=== PATIENT | male | born 1960 | race Caucasian/White ===

== ENCOUNTER → 2017-01-23 | Outpatient (CLI) | payer BC ==
[~2017-01-23] MED LIST: KEFLEX500 MG PO; VICODIN 500 MG-1 TAB PO
[2017-01-23 08:12] LABS: INTERNATIONAL NORM RATIO 1.5 (2.0-3.5); PROTHROMBIN TIME 16.5 SECONDS (9.0-12.4)
== END | disposition home or self-care (01) ==
LOC: LAB 07:16
PROVIDERS: Family Medicine
DX: I82.409 Acute embolism and thrombosis of unspecified deep veins of unspecified lower extremity (principal); I26.99 Other pulmonary embolism without acute cor pulmonale

== ENCOUNTER → 2017-01-30 | Outpatient (CLI) | payer BC ==
[2017-01-30 08:27] LABS: INTERNATIONAL NORM RATIO 1.8 (2.0-3.5); PROTHROMBIN TIME 19.5 SECONDS (9.0-12.4)
== END | disposition home or self-care (01) ==
LOC: LAB 07:49
PROVIDERS: Family Medicine
DX: I26.99 Other pulmonary embolism without acute cor pulmonale (principal); I82.409 Acute embolism and thrombosis of unspecified deep veins of unspecified lower extremity

== ENCOUNTER → 2017-02-20 | Outpatient (CLI) | payer BC ==
[2017-02-20 08:11] LABS: INTERNATIONAL NORM RATIO 1.8 (2.0-3.5)
== END | disposition home or self-care (01) ==
LOC: LAB 07:19
PROVIDERS: Family Medicine
DX: I26.99 Other pulmonary embolism without acute cor pulmonale (principal); I82.409 Acute embolism and thrombosis of unspecified deep veins of unspecified lower extremity

== ENCOUNTER → 2017-04-03 | Outpatient (CLI) | payer BC ==
[2017-04-03 09:15] LABS: INTERNATIONAL NORM RATIO 2.9 (2.0-3.5); PROTHROMBIN TIME 32.3 SECONDS (9.0-12.4)
== END | disposition home or self-care (01) ==
LOC: LAB 07:49
PROVIDERS: Family Medicine
DX: Z79.01 Long term (current) use of anticoagulants (principal)

== ENCOUNTER → 2017-05-07 | Outpatient (CLI) | payer BC ==
[2017-05-07 08:41] LABS: INTERNATIONAL NORM RATIO 1.9 (2.0-3.5); PROTHROMBIN TIME 20.9 SECONDS (9.0-12.4)
== END | disposition home or self-care (01) ==
LOC: LAB 07:37
PROVIDERS: Family Medicine
DX: Z79.01 Long term (current) use of anticoagulants (principal)

== ENCOUNTER → 2017-06-05 | Outpatient (CLI) | payer BC ==
[2017-06-05 08:32] LABS: INTERNATIONAL NORM RATIO 2.4 (2.0-3.5); PROTHROMBIN TIME 27.4 SECONDS (9.0-12.4)
== END | disposition home or self-care (01) ==
LOC: LAB 07:29
PROVIDERS: Family Medicine
DX: Z79.01 Long term (current) use of anticoagulants (principal)

== ENCOUNTER → 2017-07-10 | Outpatient (CLI) | payer BC ==
[2017-07-10 09:15] LABS: INTERNATIONAL NORM RATIO 2.5 (2.0-3.5)
== END | disposition home or self-care (01) ==
LOC: LAB 08:07
PROVIDERS: Family Medicine
DX: Z79.01 Long term (current) use of anticoagulants (principal)

== ENCOUNTER → 2017-08-07 | Outpatient (CLI) | payer BC ==
[2017-08-07 08:32] LABS: HEMATOCRIT 40.7 % (42.0-52.0); HEMOGLOBIN 13.1 g/dl (14.0-18.0); MEAN CELL VOLUME 80.3 fl (80.0-94.0); MEAN CORPUSCULAR HGB 25.8 pg (27.0-31.0); MEAN CORPUSCULAR HGB CONC 32.2 g/dl (33.0-37.0); MEAN PLATELET VOLUME 11.1 fl (9.6-12.3); RED BLOOD COUNT 5.07 10*6/uL (4.50-5.90); RED CELL DISTRI WIDTH 15.8 % (0-14.5); WHITE BLOOD COUNT 5.7 10*3/uL (4.8-10.8)
[2017-08-07 08:54] LABS: ALKALINE PHOSPHATASE 61 U/L (45-117); BUN 14 mg/dl (7-24); CHLORIDE 107 mmol/L (98-107); CHOLESTEROL 151 mg/dL (<200); CREATININE 0.93 mg/dL (0.70-1.30); HDL CHOLESTEROL 30 mg/dl (40-60); LDL CHOLESTEROL 66 mg/dL (9-159); POTASSIUM 4.6 mmol/L (3.5-5.1); SGOT/AST 17 IU/L (3-35); SGPT/ALT 23 U/L (12-78); SODIUM 140 mmol/L (136-145); TOTAL PROTEIN 7.3 gm/dL (6.4-8.2); TRIGLYCERIDES 273 mg/dl (<150); VLDL CHOLESTEROL 55 mg/dL (6-40)
[2017-08-07 08:56] LABS: INTERNATIONAL NORM RATIO 2.3 (2.0-3.5)
== END | disposition home or self-care (01) ==
LOC: LAB 07:53
PROVIDERS: Family Medicine
DX: Z12.5 Encounter for screening for malignant neoplasm of prostate (principal); E78.00 Pure hypercholesterolemia, unspecified; E55.9 Vitamin D deficiency, unspecified; I10 Essential (primary) hypertension; K21.9 Gastro-esophageal reflux disease without esophagitis; R79.1 Abnormal coagulation profile; Z79.899 Other long term (current) drug therapy

== ENCOUNTER → 2017-09-25 | Outpatient (CLI) | payer BC ==
[2017-09-25 08:22] LABS: INTERNATIONAL NORM RATIO 1.6 (2.0-3.5)
== END | disposition home or self-care (01) ==
LOC: LAB 07:12
PROVIDERS: Family Medicine
DX: Z79.01 Long term (current) use of anticoagulants (principal)

== ENCOUNTER → 2017-11-06 | Outpatient (CLI) | payer BC ==
[2017-11-06 09:51] LABS: INTERNATIONAL NORM RATIO 1.7 (2.0-3.5)
== END | disposition home or self-care (01) ==
LOC: LAB 09:12
PROVIDERS: Family Medicine
DX: Z51.81 Encounter for therapeutic drug level monitoring (principal); I10 Essential (primary) hypertension; Z79.899 Other long term (current) drug therapy

== ENCOUNTER → 2017-11-29 | Outpatient (CLI) | payer BC ==
[2017-11-29 08:03] LABS: INTERNATIONAL NORM RATIO 2.7 (2.0-3.5)
== END | disposition home or self-care (01) ==
LOC: LAB 07:09
PROVIDERS: Family Medicine
DX: Z79.01 Long term (current) use of anticoagulants (principal)

== ENCOUNTER → 2018-01-29 | Outpatient (CLI) | payer BC ==
[2018-01-29 12:32] LABS: INTERNATIONAL NORM RATIO 2.6 (2.0-3.5)
== END | disposition home or self-care (01) ==
LOC: LAB 11:48
PROVIDERS: Family Medicine
DX: Z51.81 Encounter for therapeutic drug level monitoring (principal); Z79.01 Long term (current) use of anticoagulants

== ENCOUNTER → 2018-02-08 | Outpatient (CLI) | payer BC ==
[2018-02-08 09:37] LABS: HEMATOCRIT 40.1 % (42.0-52.0); HEMOGLOBIN 12.3 g/dl (14.0-18.0); MEAN CELL VOLUME 78.9 fl (80.0-94.0); MEAN CORPUSCULAR HGB 24.2 pg (27.0-31.0); MEAN CORPUSCULAR HGB CONC 30.7 g/dl (33.0-37.0); MEAN PLATELET VOLUME 10.5 fl (9.6-12.3); RED BLOOD COUNT 5.08 10*6/uL (4.50-5.90); RED CELL DISTRI WIDTH 16.6 % (0-14.5); WHITE BLOOD COUNT 6.7 10*3/uL (4.8-10.8)
[2018-02-08 10:07] LABS: ALBUMIN 3.9 gm/dl (3.1-4.5); BUN 12 mg/dl (7-24); CHLORIDE 108 mmol/L (98-107); POTASSIUM 4.9 mmol/L (3.5-5.1); SODIUM 141 mmol/L (136-145)
[2018-02-08 10:13] LABS: ALKALINE PHOSPHATASE 63 U/L (45-117); CHOLESTEROL 132 mg/dL (<200); CREATININE 0.95 mg/dL (0.70-1.30); HDL CHOLESTEROL 25 mg/dl (40-60); LDL CHOLESTEROL 62 mg/dL (9-159); SGOT/AST 15 IU/L (3-35); SGPT/ALT 21 U/L (12-78); TOTAL PROTEIN 7.3 gm/dL (6.4-8.2); TRIGLYCERIDES 224 mg/dl (<150); VLDL CHOLESTEROL 45 mg/dL (6-40)
[2018-02-09 09:10] LABS: PROSTATE SPECIFIC AG FREE 0.4 ng/mL
[2018-02-10 09:05] LABS: TESTOSTERONE FREE, (DIRECT) 8.2 pg/mL (7.2-24.0)
== END | disposition home or self-care (01) ==
LOC: LAB 09:01
PROVIDERS: Family Medicine
DX: E78.00 Pure hypercholesterolemia, unspecified (principal); N40.0 Benign prostatic hyperplasia without lower urinary tract symptoms; Z79.01 Long term (current) use of anticoagulants

== ENCOUNTER → 2018-03-12 | Outpatient (CLI) | payer BC ==
[2018-03-12 08:15] LABS: INTERNATIONAL NORM RATIO 2.7 (2.0-3.5)
== END | disposition home or self-care (01) ==
LOC: LAB 07:21
PROVIDERS: Family Medicine
DX: R79.1 Abnormal coagulation profile (principal); Z79.01 Long term (current) use of anticoagulants

== ENCOUNTER → 2018-04-08 | Outpatient (CLI) | payer BC ==
[2018-04-08 08:47] LABS: INTERNATIONAL NORM RATIO 4.1 (2.0-3.5)
== END | disposition home or self-care (01) ==
LOC: LAB 07:13
PROVIDERS: Family Medicine
DX: I82.401 Acute embolism and thrombosis of unspecified deep veins of right lower extremity (principal); Z79.01 Long term (current) use of anticoagulants

== ENCOUNTER → 2018-04-18 | Outpatient (CLI) | payer BC ==
[2018-04-18 08:07] LABS: INTERNATIONAL NORM RATIO 2.6 (2.0-3.5)
== END | disposition home or self-care (01) ==
LOC: LAB 07:25
PROVIDERS: Family Medicine
DX: I82.409 Acute embolism and thrombosis of unspecified deep veins of unspecified lower extremity (principal); Z79.01 Long term (current) use of anticoagulants

== ENCOUNTER → 2018-06-28 | Outpatient (CLI) | payer BC ==
[2018-06-28 09:01] LABS: INTERNATIONAL NORM RATIO 3.3 (2.0-3.5)
== END ==
LOC: LAB 07:39
PROVIDERS: Family Medicine
DX: I26.99 Other pulmonary embolism without acute cor pulmonale (principal); I82.409 Acute embolism and thrombosis of unspecified deep veins of unspecified lower extremity; Z79.01 Long term (current) use of anticoagulants

== ENCOUNTER → 2018-08-08 | Outpatient (CLI) | payer BC ==
[2018-08-08 08:08] LABS: INTERNATIONAL NORM RATIO 2.7 (2.0-3.5)
== END | disposition home or self-care (01) ==
LOC: LAB 07:10
PROVIDERS: Family Medicine
DX: I82.499 Acute embolism and thrombosis of other specified deep vein of unspecified lower extremity (principal); I26.99 Other pulmonary embolism without acute cor pulmonale; Z79.01 Long term (current) use of anticoagulants

== ENCOUNTER → 2018-10-01 | Outpatient (CLI) | payer BC | END | disposition home or self-care (01) | LOC: LAB 07:40 | PROVIDERS: Family Medicine | DX: I82.499 Acute embolism and thrombosis of other specified deep vein of unspecified lower extremity (principal); Z79.01 Long term (current) use of anticoagulants ==

== ENCOUNTER → 2018-10-08 | Outpatient (CLI) | payer BC ==
[2018-10-08 08:32] LABS: HEMATOCRIT 34.2 % (42.0-52.0); HEMOGLOBIN 10.3 g/dl (14.0-18.0); MEAN CELL VOLUME 76.7 fl (80.0-94.0); MEAN CORPUSCULAR HGB 23.1 pg (27.0-31.0); MEAN CORPUSCULAR HGB CONC 30.1 g/dl (33.0-37.0); MEAN PLATELET VOLUME 10.2 fl (9.6-12.3); RED BLOOD COUNT 4.46 10*6/uL (4.50-5.90); WHITE BLOOD COUNT 6.3 10*3/uL (4.8-10.8)
[2018-10-08 08:56] LABS: ALBUMIN 3.7 gm/dl (3.1-4.5); ALKALINE PHOSPHATASE 55 U/L (45-117); BUN 13 mg/dl (7-24); CHLORIDE 113 mmol/L (98-107); CHOLESTEROL 135 mg/dL (<200); CREATININE 0.95 mg/dL (0.70-1.30); HDL CHOLESTEROL 26 mg/dl (40-60); LDL CHOLESTEROL 55 mg/dL (9-159); POTASSIUM 4.3 mmol/L (3.5-5.1); SGOT/AST 17 IU/L (3-35); SGPT/ALT 23 U/L (12-78); SODIUM 144 mmol/L (136-145); TOTAL PROTEIN 6.7 gm/dL (6.4-8.2); TRIGLYCERIDES 270 mg/dl (<150); VLDL CHOLESTEROL 54 mg/dL (6-40)
== END | disposition home or self-care (01) ==
LOC: LAB 07:49
PROVIDERS: Family Medicine
DX: Z12.5 Encounter for screening for malignant neoplasm of prostate (principal); K21.9 Gastro-esophageal reflux disease without esophagitis; E55.9 Vitamin D deficiency, unspecified; M79.10 Myalgia, unspecified site; M25.50 Pain in unspecified joint; Z79.01 Long term (current) use of anticoagulants

== ENCOUNTER → 2018-11-18 | Outpatient (CLI) | payer BC ==
[2018-11-18 08:30] LABS: INTERNATIONAL NORM RATIO 2.1 (2.0-3.5)
== END | disposition home or self-care (01) ==
LOC: LAB 07:21
PROVIDERS: Family Medicine
DX: I82.401 Acute embolism and thrombosis of unspecified deep veins of right lower extremity (principal); Z79.01 Long term (current) use of anticoagulants

== ENCOUNTER → 2019-04-17 | Outpatient (CLI) | payer BC | END | disposition home or self-care (01) | LOC: LAB 07:18 | DX: I71.2 Thoracic aortic aneurysm, without rupture (principal); Z95.2 Presence of prosthetic heart valve; Z86.711 Personal history of pulmonary embolism ==

== ENCOUNTER → 2019-04-21 | Outpatient (CLI) | payer BC ==
[2019-04-21 10:36] LABS: HEMATOCRIT 40.2 % (42.0-52.0); HEMOGLOBIN 12.3 g/dl (14.0-18.0); MEAN CELL VOLUME 84.8 fl (80.0-94.0); MEAN CORPUSCULAR HGB 25.9 pg (27.0-31.0); MEAN CORPUSCULAR HGB CONC 30.6 g/dl (33.0-37.0); MEAN PLATELET VOLUME 9.7 fl (9.6-12.3); RED BLOOD COUNT 4.74 10*6/uL (4.50-5.90); WHITE BLOOD COUNT 9.4 10*3/uL (4.8-10.8)
[2019-04-21 10:55] LABS: CHLORIDE 106 mmol/L (98-107); POTASSIUM 4.8 mmol/L (3.5-5.1); SODIUM 141 mmol/L (136-145)
[2019-04-21 11:00] LABS: ALBUMIN 3.7 gm/dl (3.1-4.5); ALKALINE PHOSPHATASE 116 U/L (45-117); BUN 15 mg/dl (7-24); CREATININE 1.11 mg/dL (0.70-1.30); SGOT/AST 11 IU/L (3-35); SGPT/ALT 18 U/L (12-78)
[2019-04-21 11:04] LABS: INTERNATIONAL NORM RATIO 3.4 (2.0-3.5)
== END | disposition home or self-care (01) ==
LOC: LAB 09:57
PROVIDERS: Family Medicine; Thoracic Surgery (Cardiothoracic Vascular Surgery)
DX: E74.9 Disorder of carbohydrate metabolism, unspecified (principal); D64.9 Anemia, unspecified; I71.4 Abdominal aortic aneurysm, without rupture; Z86.711 Personal history of pulmonary embolism; Z95.2 Presence of prosthetic heart valve

== ENCOUNTER → 2019-04-23 | Outpatient (CLI) | payer BC ==
[2019-04-23 09:48] LABS: INTERNATIONAL NORM RATIO 4.5 (2.0-3.5)
== END | disposition home or self-care (01) ==
LOC: LAB 08:44
PROVIDERS: Thoracic Surgery (Cardiothoracic Vascular Surgery)
DX: Z95.2 Presence of prosthetic heart valve (principal); Z86.711 Personal history of pulmonary embolism

== ENCOUNTER → 2019-04-28 | Outpatient (CLI) | payer BC ==
[2019-04-28 09:20] LABS: INTERNATIONAL NORM RATIO 2.9 (2.0-3.5)
== END | disposition home or self-care (01) ==
LOC: LAB 07:51
PROVIDERS: Thoracic Surgery (Cardiothoracic Vascular Surgery)
DX: Z95.2 Presence of prosthetic heart valve (principal); Z86.711 Personal history of pulmonary embolism

== ENCOUNTER → 2019-05-01 | Outpatient (CLI) | payer BC | END | disposition home or self-care (01) | LOC: LAB 07:42 | PROVIDERS: Thoracic Surgery (Cardiothoracic Vascular Surgery) | DX: Z95.2 Presence of prosthetic heart valve (principal); Z86.711 Personal history of pulmonary embolism ==

== ENCOUNTER → 2019-05-05 | Outpatient (CLI) | payer BC ==
[2019-05-05 09:55] LABS: INTERNATIONAL NORM RATIO 3.8 (2.0-3.5)
== END | disposition home or self-care (01) ==
LOC: LAB 08:40
PROVIDERS: Thoracic Surgery (Cardiothoracic Vascular Surgery)
DX: Z95.2 Presence of prosthetic heart valve (principal); Z86.711 Personal history of pulmonary embolism

== ENCOUNTER → 2019-05-09 | Outpatient (CLI) | payer BC | END | disposition home or self-care (01) | LOC: LAB 07:06 | PROVIDERS: Thoracic Surgery (Cardiothoracic Vascular Surgery) | DX: Z95.2 Presence of prosthetic heart valve (principal); Z86.711 Personal history of pulmonary embolism ==

== ENCOUNTER → 2019-05-21 | Outpatient (CLI) | payer BC ==
[2019-05-21 07:51] LABS: INTERNATIONAL NORM RATIO 3.7 (2.0-3.5)
== END | disposition home or self-care (01) ==
LOC: LAB 07:09
PROVIDERS: Thoracic Surgery (Cardiothoracic Vascular Surgery)
DX: Z95.2 Presence of prosthetic heart valve (principal); Z86.711 Personal history of pulmonary embolism; R07.81 Pleurodynia

== ENCOUNTER → 2019-05-27 | Outpatient (CLI) | payer BC ==
[2019-05-27 08:03] LABS: INTERNATIONAL NORM RATIO 3.3 (2.0-3.5)
== END | disposition home or self-care (01) ==
LOC: LAB 07:10
PROVIDERS: Thoracic Surgery (Cardiothoracic Vascular Surgery)
DX: Z86.711 Personal history of pulmonary embolism (principal); Z95.2 Presence of prosthetic heart valve

== ENCOUNTER → 2019-06-10 | Outpatient (CLI) | payer BC ==
[2019-06-10 10:20] LABS: INTERNATIONAL NORM RATIO 2.8 (2.0-3.5)
== END | disposition home or self-care (01) ==
LOC: LAB 07:18
PROVIDERS: Thoracic Surgery (Cardiothoracic Vascular Surgery)
DX: Z95.2 Presence of prosthetic heart valve (principal); Z86.711 Personal history of pulmonary embolism

== ENCOUNTER → 2019-06-17 | Outpatient (CLI) | payer BC ==
[2019-06-17 09:04] LABS: INTERNATIONAL NORM RATIO 2.2 (2.0-3.5)
== END | disposition home or self-care (01) ==
LOC: LAB 07:04
PROVIDERS: Thoracic Surgery (Cardiothoracic Vascular Surgery)
DX: I47.1 Supraventricular tachycardia (principal); Z95.2 Presence of prosthetic heart valve

== ENCOUNTER → 2019-06-25 | Outpatient (CLI) | payer BC ==
[2019-06-25 08:15] LABS: INTERNATIONAL NORM RATIO 2.1 (2.0-3.5)
== END | disposition home or self-care (01) ==
LOC: LAB 07:09
PROVIDERS: Thoracic Surgery (Cardiothoracic Vascular Surgery)
DX: Z95.2 Presence of prosthetic heart valve (principal); Z86.711 Personal history of pulmonary embolism

== ENCOUNTER → 2019-07-02 | Outpatient (CLI) | payer BC ==
[2019-07-02 08:02] LABS: INTERNATIONAL NORM RATIO 2.6 (2.0-3.5)
== END | disposition home or self-care (01) ==
LOC: LAB 07:14
PROVIDERS: Thoracic Surgery (Cardiothoracic Vascular Surgery)
DX: Z95.2 Presence of prosthetic heart valve (principal); Z86.711 Personal history of pulmonary embolism

== ENCOUNTER → 2019-07-09 | Outpatient (CLI) | payer BC ==
[2019-07-09 08:12] LABS: INTERNATIONAL NORM RATIO 2.7 (2.0-3.5)
== END | disposition home or self-care (01) ==
LOC: LAB 07:22
DX: Z86.711 Personal history of pulmonary embolism (principal); Z95.2 Presence of prosthetic heart valve

== ENCOUNTER → 2019-07-23 | Outpatient (CLI) | payer BC ==
[2019-07-23 08:58] LABS: INTERNATIONAL NORM RATIO 3.8 (2.0-3.5)
== END | disposition home or self-care (01) ==
LOC: LAB 07:42
PROVIDERS: Internal Medicine Cardiovascular Disease
DX: Z95.2 Presence of prosthetic heart valve (principal)

== ENCOUNTER → 2019-08-07 | Outpatient (CLI) | payer BC ==
[2019-08-07 09:25] LABS: INTERNATIONAL NORM RATIO 2.5 (2.0-3.5)
== END ==
LOC: LAB 07:39
PROVIDERS: Internal Medicine Cardiovascular Disease
DX: Z95.2 Presence of prosthetic heart valve (principal); Z86.711 Personal history of pulmonary embolism

== ENCOUNTER → 2019-08-28 | Outpatient (CLI) | payer BC | END | disposition home or self-care (01) | LOC: LAB 07:37 | PROVIDERS: Internal Medicine Cardiovascular Disease | DX: Z95.2 Presence of prosthetic heart valve (principal); Z86.711 Personal history of pulmonary embolism ==

== ENCOUNTER → 2019-09-03 | Outpatient (CLI) | payer BC ==
[2019-09-03 09:26] LABS: HEMATOCRIT 45.8 % (42.0-52.0); HEMOGLOBIN 15.2 g/dl (14.0-18.0); MEAN CELL VOLUME 89.1 fl (80.0-94.0); MEAN CORPUSCULAR HGB 29.6 pg (27.0-31.0); MEAN CORPUSCULAR HGB CONC 33.2 g/dl (33.0-37.0); MEAN PLATELET VOLUME 10.6 fl (9.6-12.3); RED BLOOD COUNT 5.14 10*6/uL (4.50-5.90); RED CELL DISTRI WIDTH 13.3 % (0-14.5); WHITE BLOOD COUNT 5.7 10*3/uL (4.8-10.8)
[2019-09-03 09:48] LABS: ALBUMIN 3.7 gm/dl (3.1-4.5); ALKALINE PHOSPHATASE 71 U/L (45-117); BUN 16 mg/dl (7-24); CHLORIDE 108 mmol/L (98-107); CHOLESTEROL 133 mg/dL (<200); CREATININE 0.96 mg/dL (0.70-1.30); HDL CHOLESTEROL 36 mg/dl (40-60); LDL CHOLESTEROL 55 mg/dL (9-159); POTASSIUM 4.2 mmol/L (3.5-5.1); SGOT/AST 16 IU/L (3-35); SGPT/ALT 23 U/L (12-78); SODIUM 141 mmol/L (136-145); TOTAL PROTEIN 6.8 gm/dL (6.4-8.2); TRIGLYCERIDES 209 mg/dl (<150); VLDL CHOLESTEROL 42 mg/dL (6-40)
== END | disposition home or self-care (01) ==
LOC: LAB 08:59
PROVIDERS: Nurse Practitioner Family
DX: R53.83 Other fatigue (principal); I25.10 Atherosclerotic heart disease of native coronary artery without angina pectoris; E55.9 Vitamin D deficiency, unspecified; R73.03 Prediabetes

== ENCOUNTER → 2019-09-25 | Outpatient (CLI) | payer BC ==
[2019-09-25 08:38] LABS: INTERNATIONAL NORM RATIO 2.3 (2.0-3.5)
== END | disposition home or self-care (01) ==
LOC: LAB 07:22
PROVIDERS: Internal Medicine Cardiovascular Disease
DX: Z86.711 Personal history of pulmonary embolism (principal)

== ENCOUNTER → 2019-10-30 | Outpatient (CLI) | payer BC ==
[2019-10-30 08:03] LABS: INTERNATIONAL NORM RATIO 2.4 (2.0-3.5)
== END | disposition home or self-care (01) ==
LOC: LAB 07:21
PROVIDERS: Internal Medicine Cardiovascular Disease
DX: Z95.2 Presence of prosthetic heart valve (principal); Z86.711 Personal history of pulmonary embolism

== ENCOUNTER → 2019-11-28 | Outpatient (CLI) | payer BC ==
[2019-11-28 06:35] LABS: INTERNATIONAL NORM RATIO 1.7 (2.0-3.5)
== END ==
LOC: LAB 05:49
PROVIDERS: Internal Medicine Cardiovascular Disease
DX: Z86.711 Personal history of pulmonary embolism (principal)

== ENCOUNTER → 2019-12-04 | Outpatient (CLI) | payer BC ==
[2019-12-04 08:19] LABS: HEMATOCRIT 45.4 % (42.0-52.0); HEMOGLOBIN 15.2 g/dl (14.0-18.0); MEAN CORPUSCULAR HGB 29.8 pg (27.0-31.0); MEAN CORPUSCULAR HGB CONC 33.5 g/dl (33.0-37.0); MEAN PLATELET VOLUME 11.1 fl (9.6-12.3); RED BLOOD COUNT 5.1 10*6/uL (4.50-5.90); RED CELL DISTRI WIDTH 12.7 % (0-14.5); WHITE BLOOD COUNT 5.2 10*3/uL (4.8-10.8)
[2019-12-04 08:47] LABS: ALBUMIN 3.8 gm/dl (3.1-4.5); ALKALINE PHOSPHATASE 72 U/L (45-117); BUN 12 mg/dl (7-24); CHLORIDE 111 mmol/L (98-107); CHOLESTEROL 136 mg/dL (<200); CREATININE 0.99 mg/dL (0.70-1.30); HDL CHOLESTEROL 36 mg/dl (40-60); LDL CHOLESTEROL 52 mg/dL (9-159); POTASSIUM 4.1 mmol/L (3.5-5.1); SGOT/AST 34 IU/L (3-35); SGPT/ALT 32 U/L (12-78); SODIUM 143 mmol/L (136-145); TOTAL PROTEIN 6.8 gm/dL (6.4-8.2); TRIGLYCERIDES 238 mg/dl (<150); VLDL CHOLESTEROL 48 mg/dL (6-40)
== END | disposition home or self-care (01) ==
LOC: LAB 07:33
PROVIDERS: Nurse Practitioner Family
DX: R73.03 Prediabetes (principal)

== ENCOUNTER → 2019-12-18 | Outpatient (CLI) | payer BC ==
[2019-12-18 07:10] LABS: INTERNATIONAL NORM RATIO 1.8 (2.0-3.5)
== END | disposition home or self-care (01) ==
LOC: LAB 05:57
PROVIDERS: Internal Medicine Cardiovascular Disease
DX: Z95.2 Presence of prosthetic heart valve (principal); Z86.711 Personal history of pulmonary embolism

== ENCOUNTER → 2020-01-01 | Outpatient (CLI) | payer BC ==
[2020-01-01 11:08] LABS: INTERNATIONAL NORM RATIO 2.7 (2.0-3.5)
== END | disposition home or self-care (01) ==
LOC: LAB 10:04
PROVIDERS: Internal Medicine Cardiovascular Disease
DX: Z95.2 Presence of prosthetic heart valve (principal); Z86.711 Personal history of pulmonary embolism

== ENCOUNTER → 2020-01-23 | Outpatient (CLI) | payer BC | END | disposition home or self-care (01) | LOC: LAB 05:45 | PROVIDERS: Internal Medicine Cardiovascular Disease | DX: Z95.2 Presence of prosthetic heart valve (principal); Z86.711 Personal history of pulmonary embolism ==

== ENCOUNTER → 2020-02-19 | Outpatient (CLI) | payer BC ==
[2020-02-19 10:15] LABS: INTERNATIONAL NORM RATIO 1.7 (2.0-3.5)
== END | disposition home or self-care (01) ==
LOC: LAB 09:37
PROVIDERS: Internal Medicine Cardiovascular Disease
DX: Z95.2 Presence of prosthetic heart valve (principal); Z86.711 Personal history of pulmonary embolism

== ENCOUNTER → 2020-03-03 | Outpatient (CLI) | payer BC ==
[2020-03-03 18:16] LABS: INTERNATIONAL NORM RATIO 2.7 (2.0-3.5)
== END | disposition home or self-care (01) ==
LOC: LAB 17:43
PROVIDERS: Internal Medicine Cardiovascular Disease
DX: Z95.2 Presence of prosthetic heart valve (principal)

== ENCOUNTER → 2020-03-25 | Outpatient (CLI) | payer BC ==
[2020-03-25 18:43] LABS: HEMATOCRIT 42.9 % (42.0-52.0); MEAN CORPUSCULAR HGB 30.7 pg (27.0-31.0); MEAN CORPUSCULAR HGB CONC 34.5 g/dl (33.0-37.0); MEAN PLATELET VOLUME 10.2 fl (9.6-12.3); RED BLOOD COUNT 4.82 10*6/uL (4.50-5.90); RED CELL DISTRI WIDTH 13.1 % (0-14.5); WHITE BLOOD COUNT 5.8 10*3/uL (4.8-10.8)
[2020-03-25 19:02] LABS: ALBUMIN 4.1 gm/dl (3.1-4.5); ALKALINE PHOSPHATASE 64 U/L (45-117); BUN 22 mg/dl (7-24); CHLORIDE 108 mmol/L (98-107); CHOLESTEROL 141 mg/dL (<200); CPK 143 U/L (39-308); CREATININE 1.12 mg/dL (0.70-1.30); HDL CHOLESTEROL 29 mg/dl (40-60); LDL CHOLESTEROL 49 mg/dL (9-159); POTASSIUM 4.2 mmol/L (3.5-5.1); SGOT/AST 16 IU/L (3-35); SGPT/ALT 26 U/L (12-78); SODIUM 138 mmol/L (136-145); TOTAL PROTEIN 7.1 gm/dL (6.4-8.2); TRIGLYCERIDES 315 mg/dl (<150); VLDL CHOLESTEROL 63 mg/dL (6-40)
[2020-03-25 19:08] LABS: INTERNATIONAL NORM RATIO 2.4 (2.0-3.5)
[2020-03-29 02:03] LABS: TESTOSTERONE FREE, (DIRECT) 4.5 pg/mL (7.2-24.0)
== END | disposition home or self-care (01) ==
LOC: LAB 18:15
PROVIDERS: Family Medicine; Internal Medicine Cardiovascular Disease
DX: K21.9 Gastro-esophageal reflux disease without esophagitis (principal); E78.00 Pure hypercholesterolemia, unspecified; R53.83 Other fatigue; Z86.711 Personal history of pulmonary embolism; Z95.2 Presence of prosthetic heart valve; N52.9 Male erectile dysfunction, unspecified

== ENCOUNTER → 2020-04-21 | Outpatient (CLI) | payer BC ==
[2020-04-21 08:43] LABS: HEMATOCRIT 43.6 % (42.0-52.0); MEAN CORPUSCULAR HGB 30.2 pg (27.0-31.0); MEAN CORPUSCULAR HGB CONC 33.9 g/dl (33.0-37.0); MEAN PLATELET VOLUME 9.9 fl (9.6-12.3); RED BLOOD COUNT 4.9 10*6/uL (4.50-5.90); RED CELL DISTRI WIDTH 13.3 % (0-14.5); WHITE BLOOD COUNT 4.6 10*3/uL (4.8-10.8)
[2020-04-21 09:21] LABS: ALBUMIN 3.8 gm/dl (3.1-4.5); BUN 19 mg/dl (7-24); CHLORIDE 111 mmol/L (98-107); CHOLESTEROL 158 mg/dL (<200); CREATININE 0.98 mg/dL (0.70-1.30); POTASSIUM 4.2 mmol/L (3.5-5.1); SGOT/AST 19 IU/L (3-35); SGPT/ALT 29 U/L (12-78); SODIUM 141 mmol/L (136-145); TRIGLYCERIDES 374 mg/dl (<150); VLDL CHOLESTEROL 75 mg/dL (6-40)
[2020-04-21 09:24] LABS: ALKALINE PHOSPHATASE 65 U/L (45-117); HDL CHOLESTEROL 30 mg/dl (40-60); LDL CHOLESTEROL 53 mg/dL (9-159)
== END | disposition home or self-care (01) ==
LOC: LAB 08:24
PROVIDERS: Family Medicine; Internal Medicine Cardiovascular Disease
DX: F41.1 Generalized anxiety disorder (principal); R74.9 Abnormal serum enzyme level, unspecified; E78.00 Pure hypercholesterolemia, unspecified; E55.9 Vitamin D deficiency, unspecified; I10 Essential (primary) hypertension; Z95.2 Presence of prosthetic heart valve; Z86.711 Personal history of pulmonary embolism

== ENCOUNTER → 2020-05-05 | Outpatient (CLI) | payer BC ==
[2020-05-05 06:59] LABS: INTERNATIONAL NORM RATIO 2.3 (2.0-3.5)
== END | disposition home or self-care (01) ==
LOC: LAB 05:51
PROVIDERS: Internal Medicine Cardiovascular Disease
DX: Z86.711 Personal history of pulmonary embolism (principal); Z95.2 Presence of prosthetic heart valve

== ENCOUNTER → 2020-05-27 | Outpatient (CLI) | payer BC ==
[2020-05-27 18:57] LABS: INTERNATIONAL NORM RATIO 3.6 (2.0-3.5)
== END | disposition home or self-care (01) ==
LOC: LAB 18:03
PROVIDERS: Internal Medicine Cardiovascular Disease
DX: Z86.711 Personal history of pulmonary embolism (principal)

== ENCOUNTER → 2020-06-10 | Outpatient (CLI) | payer BC ==
[2020-06-10 08:26] LABS: INTERNATIONAL NORM RATIO 3.1 (2.0-3.5)
== END | disposition home or self-care (01) ==
LOC: LAB 07:44
PROVIDERS: Internal Medicine Cardiovascular Disease
DX: Z95.2 Presence of prosthetic heart valve (principal); Z86.711 Personal history of pulmonary embolism

== ENCOUNTER → 2020-06-24 | Outpatient (CLI) | payer BC | END | disposition home or self-care (01) | LOC: LAB 06:29 | PROVIDERS: ATTEND Internal Medicine Cardiovascular Disease | DX: Z86.711 Personal history of pulmonary embolism (principal); Z95.2 Presence of prosthetic heart valve ==

== ENCOUNTER → 2020-07-14 | Outpatient (CLI) | payer BC | END | disposition home or self-care (01) | LOC: LAB 17:47 | PROVIDERS: ATTEND Internal Medicine Cardiovascular Disease | DX: Z95.2 Presence of prosthetic heart valve (principal); Z86.711 Personal history of pulmonary embolism ==

== ENCOUNTER → 2020-10-11 | Outpatient (CLI) | payer BC ==
[2020-10-11 07:44] LABS: HEMATOCRIT 44.4 % (42.0-52.0); MEAN CELL VOLUME 88.1 fl (80.0-94.0); MEAN CORPUSCULAR HGB 29.6 pg (27.0-31.0); MEAN CORPUSCULAR HGB CONC 33.6 g/dl (33.0-37.0); MEAN PLATELET VOLUME 10.7 fl (9.6-12.3); RED BLOOD COUNT 5.04 10*6/uL (4.50-5.90); RED CELL DISTRI WIDTH 12.9 % (0-14.5); WHITE BLOOD COUNT 4.8 10*3/uL (4.8-10.8)
[2020-10-11 08:16] LABS: ALBUMIN 3.7 gm/dl (3.1-4.5); ALKALINE PHOSPHATASE 75 U/L (45-117); BUN 13 mg/dl (7-24); CHLORIDE 106 mmol/L (98-107); CHOLESTEROL 131 mg/dL (<200); CREATININE 1.05 mg/dL (0.70-1.30); HDL CHOLESTEROL 33 mg/dl (40-60); LDL CHOLESTEROL 41 mg/dL (9-159); POTASSIUM 4.7 mmol/L (3.5-5.1); SGOT/AST 28 IU/L (3-35); SGPT/ALT 31 U/L (12-78); SODIUM 138 mmol/L (136-145); TOTAL PROTEIN 6.9 gm/dL (6.4-8.2); TRIGLYCERIDES 286 mg/dl (<150); VLDL CHOLESTEROL 57 mg/dL (6-40)
== END | disposition home or self-care (01) ==
LOC: LAB 07:14
PROVIDERS: ATTEND Family Medicine
DX: Z12.5 Encounter for screening for malignant neoplasm of prostate (principal); E78.00 Pure hypercholesterolemia, unspecified; E74.9 Disorder of carbohydrate metabolism, unspecified; K21.9 Gastro-esophageal reflux disease without esophagitis; E74.00 Glycogen storage disease, unspecified; F41.1 Generalized anxiety disorder

== ENCOUNTER → 2021-01-14 | Outpatient (CLI) | payer BC ==
[2021-01-14 08:11] LABS: ALBUMIN 3.4 gm/dl (3.1-4.5); ALKALINE PHOSPHATASE 74 U/L (45-117); BUN 10 mg/dl (7-24); CHLORIDE 113 mmol/L (98-107); CHOLESTEROL 127 mg/dL (<200); CPK 87 U/L (39-308); CREATININE 0.92 mg/dL (0.70-1.30); HDL CHOLESTEROL 33 mg/dl (40-60); LDL CHOLESTEROL 41 mg/dL (9-159); POTASSIUM 4.4 mmol/L (3.5-5.1); SGOT/AST 14 IU/L (3-35); SGPT/ALT 23 U/L (12-78); SODIUM 144 mmol/L (136-145); TOTAL PROTEIN 6.6 gm/dL (6.4-8.2); TRIGLYCERIDES 266 mg/dl (<150); VLDL CHOLESTEROL 53 mg/dL (6-40)
== END | disposition home or self-care (01) ==
LOC: LAB 07:21
PROVIDERS: ATTEND Family Medicine
DX: E78.00 Pure hypercholesterolemia, unspecified (principal)

== ENCOUNTER → 2021-04-18 | Outpatient (CLI) | payer BC ==
[2021-04-18 14:11] LABS: HEMATOCRIT 44.6 % (42.0-52.0); MEAN CELL VOLUME 86.8 fl (80.0-94.0); MEAN CORPUSCULAR HGB 29.2 pg (27.0-31.0); MEAN CORPUSCULAR HGB CONC 33.6 g/dl (33.0-37.0); MEAN PLATELET VOLUME 10.4 fl (9.6-12.3); RED BLOOD COUNT 5.14 10*6/uL (4.50-5.90); RED CELL DISTRI WIDTH 13.3 % (0-14.5); WHITE BLOOD COUNT 5.6 10*3/uL (4.8-10.8)
[2021-04-18 14:42] LABS: ALBUMIN 3.8 gm/dl (3.1-4.5); BUN 14 mg/dl (7-24); CHLORIDE 109 mmol/L (98-107); CHOLESTEROL 142 mg/dL (<200); CREATININE 0.85 mg/dL (0.70-1.30); POTASSIUM 4.2 mmol/L (3.5-5.1); SGOT/AST 16 IU/L (3-35); SGPT/ALT 21 U/L (12-78); SODIUM 140 mmol/L (136-145); TRIGLYCERIDES 341 mg/dl (<150)
[2021-04-18 14:43] LABS: ALKALINE PHOSPHATASE 74 U/L (45-117); LDL CHOLESTEROL 43 mg/dL (9-159)
== END | disposition home or self-care (01) ==
LOC: LAB 13:51
PROVIDERS: ATTEND Family Medicine
DX: E78.00 Pure hypercholesterolemia, unspecified (principal); D64.9 Anemia, unspecified; E74.9 Disorder of carbohydrate metabolism, unspecified

== ENCOUNTER → 2022-04-20 | Outpatient (CLI) | payer BC ==
[2022-04-20 10:19] LABS: INTERNATIONAL NORM RATIO 2.2 (2.0-3.5)
== END | disposition home or self-care (01) ==
LOC: LAB 09:51
PROVIDERS: ATTEND Family Medicine
DX: Z79.01 Long term (current) use of anticoagulants (principal)

== ENCOUNTER → 2022-05-18 | Outpatient (CLI) | payer BC ==
[2022-05-18 07:46] LABS: INTERNATIONAL NORM RATIO 2.2 (2.0-3.5)
== END | disposition home or self-care (01) ==
LOC: LAB 07:15
PROVIDERS: ATTEND Family Medicine
DX: Z79.01 Long term (current) use of anticoagulants (principal)

== ENCOUNTER → 2022-07-05 | Outpatient (CLI) | payer BC ==
[2022-07-05 10:44] LABS: INTERNATIONAL NORM RATIO 1.6 (2.0-3.5)
== END | disposition home or self-care (01) ==
LOC: LAB 09:57
PROVIDERS: ATTEND Family Medicine
DX: Z79.01 Long term (current) use of anticoagulants (principal)

== ENCOUNTER → 2022-08-01 | Outpatient (CLI) | payer BC ==
[2022-08-01 08:27] LABS: INTERNATIONAL NORM RATIO 2.2 (2.0-3.5)
== END | disposition home or self-care (01) ==
LOC: LAB 07:13
PROVIDERS: ATTEND Family Medicine
DX: Z79.01 Long term (current) use of anticoagulants (principal)

== ENCOUNTER → 2022-09-04 | Outpatient (CLI) | payer BC ==
[2022-09-04 09:15] LABS: INTERNATIONAL NORM RATIO 1.9 (2.0-3.5)
== END | disposition home or self-care (01) ==
LOC: LAB 08:38
PROVIDERS: ATTEND Family Medicine
DX: Z79.01 Long term (current) use of anticoagulants (principal)

== ENCOUNTER → 2022-11-02 | Outpatient (CLI) | payer BC ==
[2022-11-02 07:54] LABS: HEMATOCRIT 45.1 % (42.0-52.0); MEAN CELL VOLUME 90.2 fl (80.0-94.0); MEAN CORPUSCULAR HGB 29.6 pg (27.0-31.0); MEAN CORPUSCULAR HGB CONC 32.8 g/dl (33.0-37.0); MEAN PLATELET VOLUME 10.4 fl (9.6-12.3); RED CELL DISTRI WIDTH 13.5 % (0-14.5); WHITE BLOOD COUNT 5.6 10*3/uL (4.8-10.8)
[2022-11-02 08:04] LABS: INTERNATIONAL NORM RATIO 2.1 (2.0-3.5)
[2022-11-02 08:11] LABS: ALKALINE PHOSPHATASE 75 U/L (46-116); BUN 11 mg/dl (9-23); CHLORIDE 104 mmol/L (98-107); CHOLESTEROL 186 mg/dL (<200); LDL CHOLESTEROL 86 mg/dL (9-159); POTASSIUM 4.3 mmol/L (3.4-5.1); SGPT/ALT 15 U/L (10-49); TRIGLYCERIDES 335 mg/dl (<150)
[2022-11-02 08:14] LABS: VITAMIN D, 25-HYDROXY 39.1 ng/mL (30-100)
[2022-11-02 08:15] LABS: FREE T4 1.12 ng/dl (0.89-1.76); THYROID STIM HORMONE (HS) 1.262 uIU/ml (0.550-4.780)
== END | disposition home or self-care (01) ==
LOC: LAB 07:06
PROVIDERS: Family Medicine
DX: Z12.5 Encounter for screening for malignant neoplasm of prostate (principal); I10 Essential (primary) hypertension; E74.9 Disorder of carbohydrate metabolism, unspecified; E55.9 Vitamin D deficiency, unspecified; E78.00 Pure hypercholesterolemia, unspecified

== ENCOUNTER → 2023-02-08 | Outpatient (CLI) | payer BC ==
[2023-02-08 07:59] LABS: HEMATOCRIT 41.9 % (42.0-52.0); MEAN CELL VOLUME 88.8 fl (80.0-94.0); MEAN CORPUSCULAR HGB 28.4 pg (27.0-31.0); MEAN PLATELET VOLUME 10.4 fl (9.6-12.3); RED BLOOD COUNT 4.72 10*6/uL (4.50-5.90); RED CELL DISTRI WIDTH 13.3 % (0-14.5); WHITE BLOOD COUNT 5.1 10*3/uL (4.8-10.8)
[2023-02-08 08:23] LABS: ALKALINE PHOSPHATASE 70 U/L (46-116); BUN 10 mg/dl (9-23); CHLORIDE 111 mmol/L (98-107); CHOLESTEROL 140 mg/dL (<200); CPK 88 U/L (34-171); LDL CHOLESTEROL 69 mg/dL (9-159); POTASSIUM 4.1 mmol/L (3.4-5.1); TOTAL PROTEIN 6.1 gm/dL (6.0-8.0); TRIGLYCERIDES 205 mg/dl (<150)
[2023-02-08 08:29] LABS: SGPT/ALT < 7 U/L (10-49)
[2023-02-08 08:41] LABS: INTERNATIONAL NORM RATIO 5.6 (2.0-3.5)
== END | disposition home or self-care (01) ==
LOC: LAB 07:09
PROVIDERS: ATTEND Family Medicine
DX: E78.00 Pure hypercholesterolemia, unspecified (principal); E74.9 Disorder of carbohydrate metabolism, unspecified; D64.9 Anemia, unspecified

== ENCOUNTER → 2023-02-15 | Outpatient (CLI) | payer BC ==
[2023-02-15 08:17] LABS: INTERNATIONAL NORM RATIO 2.1 (2.0-3.5)
== END | disposition home or self-care (01) ==
LOC: LAB 07:13
PROVIDERS: ATTEND Family Medicine
DX: Z79.01 Long term (current) use of anticoagulants (principal)

== ENCOUNTER → 2023-02-22 | Outpatient (CLI) | payer BC ==
[2023-02-22 16:47] LABS: INTERNATIONAL NORM RATIO 2.1 (2.0-3.5)
== END | disposition home or self-care (01) ==
LOC: LAB 16:15
PROVIDERS: ATTEND Family Medicine
DX: Z79.01 Long term (current) use of anticoagulants (principal)

== ENCOUNTER → 2023-03-07 | Outpatient (CLI) | payer BC | END | disposition home or self-care (01) | LOC: LAB 17:40 | PROVIDERS: ATTEND Family Medicine | DX: Z79.01 Long term (current) use of anticoagulants (principal) ==

== ENCOUNTER → 2023-03-15 | Outpatient (CLI) | payer BC ==
[2023-03-15 07:40] LABS: INTERNATIONAL NORM RATIO 2.7 (2.0-3.5)
== END | disposition home or self-care (01) ==
LOC: LAB 07:02
PROVIDERS: ATTEND Family Medicine
DX: Z79.01 Long term (current) use of anticoagulants (principal)

== ENCOUNTER → 2023-03-21 | Outpatient (CLI) | payer BC ==
[2023-03-21 19:12] LABS: INTERNATIONAL NORM RATIO 5.5 (2.0-3.5)
== END | disposition home or self-care (01) ==
LOC: LAB 17:44
PROVIDERS: ATTEND Family Medicine
DX: Z79.01 Long term (current) use of anticoagulants (principal)

== ENCOUNTER → 2023-03-27 | Outpatient (CLI) | payer BC ==
[2023-03-27 18:13] LABS: INTERNATIONAL NORM RATIO 1.5 (2.0-3.5)
== END | disposition home or self-care (01) ==
LOC: LAB 17:47
PROVIDERS: ATTEND Family Medicine
DX: Z79.01 Long term (current) use of anticoagulants (principal)

== ENCOUNTER → 2023-04-04 | Outpatient (CLI) | payer BC ==
[2023-04-04 11:26] LABS: INTERNATIONAL NORM RATIO 3.1 (2.0-3.5)
== END | disposition home or self-care (01) ==
LOC: LAB 10:39
PROVIDERS: ATTEND Family Medicine
DX: Z79.01 Long term (current) use of anticoagulants (principal)

== ENCOUNTER → 2023-04-19 | Outpatient (CLI) | payer BC ==
[2023-04-19 09:51] LABS: INTERNATIONAL NORM RATIO 4.7 (2.0-3.5)
== END | disposition home or self-care (01) ==
LOC: LAB 08:32
PROVIDERS: ATTEND Family Medicine
DX: Z79.01 Long term (current) use of anticoagulants (principal)

== ENCOUNTER → 2023-04-27 | Outpatient (CLI) | payer BC ==
[2023-04-27 07:46] LABS: INTERNATIONAL NORM RATIO 1.5 (2.0-3.5)
== END | disposition home or self-care (01) ==
LOC: LAB 07:23
PROVIDERS: ATTEND Family Medicine
DX: Z79.01 Long term (current) use of anticoagulants (principal)

== ENCOUNTER → 2023-05-09 | Outpatient (CLI) | payer BC ==
[2023-05-09 07:25] LABS: INTERNATIONAL NORM RATIO 3.7 (2.0-3.5)
== END | disposition home or self-care (01) ==
LOC: LAB 07:05
PROVIDERS: ATTEND Family Medicine
DX: Z79.01 Long term (current) use of anticoagulants (principal)

== ENCOUNTER → 2023-05-17 | Outpatient (CLI) | payer BC ==
[2023-05-17 08:47] LABS: INTERNATIONAL NORM RATIO 4.9 (2.0-3.5)
== END | disposition home or self-care (01) ==
LOC: LAB 07:45
PROVIDERS: ATTEND Family Medicine
DX: Z79.01 Long term (current) use of anticoagulants (principal)

== ENCOUNTER → 2023-05-23 | Outpatient (CLI) | payer BC ==
[2023-05-23 11:00] LABS: INTERNATIONAL NORM RATIO 2.2 (2.0-3.5)
== END | disposition home or self-care (01) ==
LOC: LAB 10:14
PROVIDERS: ATTEND Family Medicine
DX: Z79.01 Long term (current) use of anticoagulants (principal)

== ENCOUNTER → 2023-06-14 | Outpatient (CLI) | payer BC ==
[2023-06-14 17:59] LABS: INTERNATIONAL NORM RATIO 2.7 (2.0-3.5)
== END | disposition home or self-care (01) ==
LOC: LAB 17:23
PROVIDERS: ATTEND Family Medicine
DX: Z79.01 Long term (current) use of anticoagulants (principal)

== ENCOUNTER → 2023-06-21 | Outpatient (CLI) | payer BC ==
[2023-06-21 08:06] LABS: HEMATOCRIT 41.9 % (42.0-52.0); MEAN CELL VOLUME 85.3 fl (80.0-94.0); MEAN CORPUSCULAR HGB 27.5 pg (27.0-31.0); MEAN CORPUSCULAR HGB CONC 32.2 g/dl (33.0-37.0); RED BLOOD COUNT 4.91 10*6/uL (4.50-5.90); RED CELL DISTRI WIDTH 15.4 % (0-14.5); WHITE BLOOD COUNT 5.2 10*3/uL (4.8-10.8)
[2023-06-21 08:16] LABS: INTERNATIONAL NORM RATIO 2.1 (2.0-3.5)
[2023-06-21 08:36] LABS: ALKALINE PHOSPHATASE 66 U/L (46-116); BUN 10 mg/dl (9-23); CHLORIDE 108 mmol/L (98-107); CHOLESTEROL 154 mg/dL (<200); LDL CHOLESTEROL 87 mg/dL (9-159); POTASSIUM 4.5 mmol/L (3.4-5.1); SGPT/ALT 9 U/L (10-49); TOTAL PROTEIN 6.6 gm/dL (6.0-8.0); TRIGLYCERIDES 179 mg/dl (<150)
[2023-06-21 09:13] LABS: VITAMIN D, 25-HYDROXY 63.8 ng/mL (30-100)
== END | disposition home or self-care (01) ==
LOC: LAB 07:49
PROVIDERS: ATTEND Family Medicine
DX: Z12.5 Encounter for screening for malignant neoplasm of prostate (principal); R53.83 Other fatigue; E74.9 Disorder of carbohydrate metabolism, unspecified; F41.1 Generalized anxiety disorder; E74.00 Glycogen storage disease, unspecified; E55.9 Vitamin D deficiency, unspecified; Z79.01 Long term (current) use of anticoagulants

== ENCOUNTER → 2023-07-05 | Outpatient (CLI) | payer BC ==
[2023-07-05 09:13] LABS: INTERNATIONAL NORM RATIO 2.5 (2.0-3.5)
== END | disposition home or self-care (01) ==
LOC: LAB 08:47
PROVIDERS: ATTEND Family Medicine
DX: Z79.01 Long term (current) use of anticoagulants (principal)

== ENCOUNTER → 2023-07-06 | Outpatient (CLI) | payer BC | END | disposition home or self-care (01) | LOC: LAB 08:59 | PROVIDERS: ATTEND Family Medicine | DX: E29.1 Testicular hypofunction (principal) ==

== ENCOUNTER → 2023-07-25 | Outpatient (CLI) | payer BC | LOC: RAD 15:56 | PROVIDERS: ATTEND Family Medicine | DX: R06.02 Shortness of breath (principal) ==

== ENCOUNTER → 2023-07-27 | Outpatient (CLI) | payer BC ==
[2023-07-27 16:40] LABS: INTERNATIONAL NORM RATIO > 9.8 (2.0-3.5)
== END | disposition home or self-care (01) ==
LOC: LAB 15:35
PROVIDERS: ATTEND Family Medicine
DX: Z79.01 Long term (current) use of anticoagulants (principal)

== ENCOUNTER → 2023-07-30 | Outpatient (CLI) | payer BC ==
[2023-07-30 15:50] LABS: INTERNATIONAL NORM RATIO 2.9 (2.0-3.5)
== END | disposition home or self-care (01) ==
LOC: LAB 15:24
PROVIDERS: ATTEND Family Medicine
DX: Z79.01 Long term (current) use of anticoagulants (principal)

== ENCOUNTER → 2023-08-03 | Outpatient (CLI) | payer BC ==
[2023-08-03 15:48] LABS: INTERNATIONAL NORM RATIO 1.5 (2.0-3.5)
== END | disposition home or self-care (01) ==
LOC: LAB 15:18
PROVIDERS: ATTEND Family Medicine
DX: Z79.01 Long term (current) use of anticoagulants (principal)

== ENCOUNTER → 2023-08-09 | Outpatient (CLI) | payer BC ==
[2023-08-09 13:12] LABS: INTERNATIONAL NORM RATIO 4.2 (2.0-3.5)
== END | disposition home or self-care (01) ==
LOC: LAB 12:13
PROVIDERS: ATTEND Family Medicine
DX: J98.11 Atelectasis (principal); J18.9 Pneumonia, unspecified organism; M43.8X4 Other specified deforming dorsopathies, thoracic region; Z79.01 Long term (current) use of anticoagulants

== ENCOUNTER → 2023-08-15 | Outpatient (CLI) | payer BC ==
[2023-08-15 17:24] LABS: THYROXINE (T4) TOTAL 6.5 ug/dl (4.5-10.9)
[2023-08-15 17:27] LABS: INTERNATIONAL NORM RATIO 4.8 (2.0-3.5)
== END | disposition home or self-care (01) ==
LOC: LAB 16:47
PROVIDERS: ATTEND Family Medicine
DX: Z79.01 Long term (current) use of anticoagulants (principal)

== ENCOUNTER → 2023-08-23 | Outpatient (CLI) | payer BC ==
[2023-08-23 18:51] LABS: THYROXINE (T4) TOTAL 6.3 ug/dl (4.5-10.9)
[2023-08-23 18:53] LABS: INTERNATIONAL NORM RATIO 5.9 (2.0-3.5)
== END | disposition home or self-care (01) ==
LOC: LAB 17:45
PROVIDERS: ATTEND Family Medicine
DX: J18.9 Pneumonia, unspecified organism (principal); N40.0 Benign prostatic hyperplasia without lower urinary tract symptoms; M40.294 Other kyphosis, thoracic region; Z79.01 Long term (current) use of anticoagulants

== ENCOUNTER → 2023-08-31 | Outpatient (CLI) | payer BC | LOC: LAB 13:12 | PROVIDERS: ATTEND Family Medicine | DX: Z79.01 Long term (current) use of anticoagulants (principal) ==

== ENCOUNTER → 2023-09-10 | Outpatient (CLI) | payer BC | END | disposition home or self-care (01) | LOC: LAB 07:33 | PROVIDERS: ATTEND Family Medicine | DX: Z79.01 Long term (current) use of anticoagulants (principal) ==

== ENCOUNTER → 2023-09-24 | Outpatient (CLI) | payer BC | END | disposition home or self-care (01) | LOC: LAB 14:10 | PROVIDERS: ATTEND Family Medicine | DX: Z79.01 Long term (current) use of anticoagulants (principal) ==

== ENCOUNTER → 2023-11-08 | Outpatient (CLI) | payer BC | END | disposition home or self-care (01) | LOC: LAB 15:17 | PROVIDERS: ATTEND Family Medicine | DX: Z79.01 Long term (current) use of anticoagulants (principal) ==

== ENCOUNTER → 2023-12-12 | Outpatient (CLI) | payer BC | END | disposition home or self-care (01) | LOC: LAB 17:30 | PROVIDERS: ATTEND Family Medicine | DX: Z79.01 Long term (current) use of anticoagulants (principal) ==

== ENCOUNTER → 2024-01-08 | Outpatient (CLI) | payer BC | END | disposition home or self-care (01) | LOC: LAB 09:24 | PROVIDERS: ATTEND Family Medicine | DX: Z79.01 Long term (current) use of anticoagulants (principal) ==

== ENCOUNTER → 2024-02-02 | Outpatient (CLI) | payer BC ==
[2024-02-02 08:19] LABS: ALKALINE PHOSPHATASE 69 U/L (46-116); BUN 10 mg/dl (9-23); CHLORIDE 107 mmol/L (98-107); CHOLESTEROL 121 mg/dL (<200); LDL CHOLESTEROL 48 mg/dL (9-159); POTASSIUM 4.7 mmol/L (3.4-5.1); SGPT/ALT 12 U/L (5-49); TOTAL PROTEIN 6.6 gm/dL (6.0-8.0); TRIGLYCERIDES 200 mg/dl (<150)
== END ==
LOC: LAB 07:35
PROVIDERS: ATTEND Internal Medicine Cardiovascular Disease
DX: E78.2 Mixed hyperlipidemia (principal)

== ENCOUNTER → 2024-02-18 | Outpatient (CLI) | payer BC | END | disposition home or self-care (01) | LOC: LAB 17:40 | PROVIDERS: ATTEND Family Medicine | DX: Z79.01 Long term (current) use of anticoagulants (principal) ==

== ENCOUNTER → 2024-03-25 | Outpatient (CLI) | payer BC | LOC: LAB 13:21 | PROVIDERS: ATTEND Family Medicine | DX: R41.0 Disorientation, unspecified (principal) ==

== ENCOUNTER → 2024-05-03 | Outpatient (CLI) | payer BC | END | disposition home or self-care (01) | LOC: LAB 07:45 | PROVIDERS: ATTEND Family Medicine | DX: Z79.01 Long term (current) use of anticoagulants (principal) ==

== ENCOUNTER → 2024-06-11 | Outpatient (CLI) | payer BC ==
[2024-06-11 09:51] LABS: MEAN CELL VOLUME 88.2 fl (80.0-94.0); MEAN CORPUSCULAR HGB 28.3 pg (27.0-31.0); MEAN CORPUSCULAR HGB CONC 32.1 g/dl (33.0-37.0); MEAN PLATELET VOLUME 9.4 fl (9.6-12.3); RED BLOOD COUNT 4.42 10*6/uL (4.50-5.90); WHITE BLOOD COUNT 4.6 10*3/uL (4.8-10.8)
[2024-06-11 10:01] LABS: ACT PARTIAL THROMBO TIME 38.8 SECONDS (20.0-32.1)
[2024-06-11 11:11] LABS: ALKALINE PHOSPHATASE 78 U/L (46-116); BUN 9 mg/dl (9-23); CHLORIDE 108 mmol/L (98-107); POTASSIUM 4.7 mmol/L (3.4-5.1); SGPT/ALT 14 U/L (5-49); TOTAL PROTEIN 6.7 gm/dL (6.0-8.0)
== END | disposition home or self-care (01) ==
LOC: LAB 09:36
PROVIDERS: ATTEND Family Medicine
DX: E74.00 Glycogen storage disease, unspecified (principal); E74.9 Disorder of carbohydrate metabolism, unspecified; K21.9 Gastro-esophageal reflux disease without esophagitis; F41.1 Generalized anxiety disorder; Z79.01 Long term (current) use of anticoagulants

== ENCOUNTER → 2024-07-10 | Outpatient (CLI) | payer BC | END | disposition home or self-care (01) | LOC: LAB 16:50 | PROVIDERS: ATTEND Family Medicine | DX: Z79.01 Long term (current) use of anticoagulants (principal) ==

== ENCOUNTER → 2024-07-28 | Outpatient (CLI) | payer BC | END | disposition home or self-care (01) | LOC: LAB 07:37 | PROVIDERS: ATTEND Family Medicine | DX: Z51.81 Encounter for therapeutic drug level monitoring (principal); Z79.01 Long term (current) use of anticoagulants ==

== ENCOUNTER → 2024-08-07 | Outpatient (CLI) | payer BC | END | disposition home or self-care (01) | LOC: LAB 14:48 | PROVIDERS: ATTEND Family Medicine | DX: Z79.01 Long term (current) use of anticoagulants (principal) ==

== ENCOUNTER → 2024-09-23 | Outpatient (CLI) | payer BC | END | disposition home or self-care (01) | LOC: LAB 09:54 | PROVIDERS: ATTEND Family Medicine | DX: Z79.01 Long term (current) use of anticoagulants (principal) ==

== ENCOUNTER → 2024-10-20 | Outpatient (CLI) | payer BC | END | disposition home or self-care (01) | LOC: LAB 09:27 | PROVIDERS: ATTEND Family Medicine | DX: Z51.81 Encounter for therapeutic drug level monitoring (principal); Z79.01 Long term (current) use of anticoagulants ==

== ENCOUNTER → 2024-11-10 | Outpatient (CLI) | payer BC | END | disposition home or self-care (01) | LOC: LAB 15:52 | PROVIDERS: ATTEND Family Medicine | DX: Z51.81 Encounter for therapeutic drug level monitoring (principal); Z79.01 Long term (current) use of anticoagulants ==

== ENCOUNTER → 2024-12-17 | Outpatient (CLI) | payer BC | END | disposition home or self-care (01) | LOC: LAB 13:04 | PROVIDERS: ATTEND Family Medicine | DX: Z51.81 Encounter for therapeutic drug level monitoring (principal); Z79.01 Long term (current) use of anticoagulants ==

== ENCOUNTER → 2024-12-23 | Outpatient (CLI) | payer BC | END | disposition home or self-care (01) | LOC: LAB 07:53 | PROVIDERS: ATTEND Family Medicine | DX: Z51.81 Encounter for therapeutic drug level monitoring (principal); Z79.01 Long term (current) use of anticoagulants ==

== ENCOUNTER → 2024-12-30 | Outpatient (CLI) | payer BC | END | disposition home or self-care (01) | LOC: LAB 10:03 | PROVIDERS: ATTEND Family Medicine | DX: Z51.81 Encounter for therapeutic drug level monitoring (principal); Z79.01 Long term (current) use of anticoagulants ==

== ENCOUNTER → 2025-01-01 | Outpatient (CLI) | payer BC ==
[2025-01-01 13:59] LABS: HEMATOCRIT 36.6 % (42.0-52.0); MEAN CELL VOLUME 86.9 fl (80.0-94.0); MEAN CORPUSCULAR HGB 27.3 pg (27.0-31.0); MEAN CORPUSCULAR HGB CONC 31.4 g/dl (33.0-37.0); MEAN PLATELET VOLUME 9.8 fl (9.6-12.3); RED BLOOD COUNT 4.21 10*6/uL (4.50-5.90); RED CELL DISTRI WIDTH 15.2 % (0-14.5); WHITE BLOOD COUNT 4.4 10*3/uL (4.8-10.8)
[2025-01-01 14:25] LABS: ALKALINE PHOSPHATASE 68 U/L (46-116); BUN 11 mg/dl (9-23); CHLORIDE 108 mmol/L (98-107); CHOLESTEROL 139 mg/dL (<200); CPK 57 U/L (34-171); LDL CHOLESTEROL 73 mg/dL (9-159); POTASSIUM 4.5 mmol/L (3.4-5.1); SGPT/ALT 9 U/L (5-49); TOTAL PROTEIN 6.7 gm/dL (6.0-8.0); TRIGLYCERIDES 148 mg/dl (<150)
[2025-01-01 14:30] LABS: VALPROIC ACID (DEPAKENE) < 3.0 ug/ml (50-100)
== END | disposition home or self-care (01) ==
LOC: LAB 13:36
PROVIDERS: ATTEND Family Medicine
DX: I10 Essential (primary) hypertension (principal); E78.00 Pure hypercholesterolemia, unspecified; D64.9 Anemia, unspecified; K21.9 Gastro-esophageal reflux disease without esophagitis; E74.9 Disorder of carbohydrate metabolism, unspecified; N40.0 Benign prostatic hyperplasia without lower urinary tract symptoms

== ENCOUNTER → 2025-04-16 | Outpatient (CLI) | payer BC ==
[~2025-04-16] MED LIST changes: +BARIUM SULFATE 60% 355 ML BOT PO ONE; +BARIUM SULFATE 98% 340 GM BOT PO ONE; +BARIUM SULFATE TABLET 700 MG PO ONE; +SODIUM BICARBONATE 4 GM PACK PO ONE
== END | disposition home or self-care (01) ==
LOC: RAD 04-14 08:00 → LAB 07:27 → RAD 08:00
PROVIDERS: ATTEND Family Medicine
DX: K21.9 Gastro-esophageal reflux disease without esophagitis (principal); K22.89 Other specified disease of esophagus; R63.4 Abnormal weight loss; Z79.01 Long term (current) use of anticoagulants

== ENCOUNTER → 2025-05-09 | Outpatient (CLI) | payer BC ==
[~2025-05-09] MED LIST changes: -BARIUM SULFATE 60% 355 ML BOT PO ONE; -BARIUM SULFATE 98% 340 GM BOT PO ONE; -BARIUM SULFATE TABLET 700 MG PO ONE; -SODIUM BICARBONATE 4 GM PACK PO ONE
== END | disposition home or self-care (01) ==
LOC: LAB 10:51
PROVIDERS: ATTEND Family Medicine
DX: R41.0 Disorientation, unspecified (principal)